=== PATIENT | female | born 1975 | race African-American/Black ===

== ENCOUNTER 2021-02-28 21:03 | Emergency (ER) | payer OTHER ==
[~2021-02-28] VITALS: Ht 165.1 cm; Wt 56.7 kg
[2021-02-28] MEDS ORDERED: FLEXERIL PO (22:54)
[2021-02-28 23:14] VITALS: BP 134/85
== END 2021-02-28 23:15 | disposition still patient (30) ==
LOC: M.ERS 21:03
DX: S29.012A Strain of muscle and tendon of back wall of thorax, initial encounter (principal); S19.9XXA Unspecified injury of neck, initial encounter; V49.88XA Car occupant (driver) (passenger) injured in other specified transport accidents, initial encounter; Y93.89 Activity, other specified; Y92.413 State road as the place of occurrence of the external cause; Y99.9 Unspecified external cause status